=== PATIENT | female | born 1965 | race Caucasian/White ===

== ENCOUNTER 2017-08-26 22:51 | Emergency (ER) | payer SELFPAY, OTHER ==
[2017-08-27] MEDS: METHYLPREDNISOLONE 125 MG INJ IM (02:33)
[2017-08-27] MEDS: ALBUTEROL 0.5% (NEB) 2.5 MG/0.5 ML AMP INH (02:44)
[2017-08-27] MEDS: IPRATROPIUM (NEB) 0.5 MG/2.5 ML AMP NEB (02:44)
== END 2017-08-27 04:19 | disposition home or self-care (01) ==
LOC: FTE 22:51
DX: J20.9 Acute bronchitis, unspecified (principal)
CPT/HCPCS: 71045; 94644; 96372; 99284-25